=== PATIENT | female | born 1970 | race Caucasian/White ===

== ENCOUNTER 2017-03-09 05:54 | Emergency (ER) | payer OTHER ==
--- NOTE | 2017-03-09 05:57 | ED.REPORT ---
HPI-General Illness Date of Service Mar 09, 2017 ED Provider: Dr. Sinclair A 46 year old female with a history of SVT presents to the ED complaining of SVT onset 0530 while patient was bending over to put her socks on. Patient arrived at ED at 0615. Associated symptoms include nausea and mild dyspnea, which the patient has not experienced with previous SVT. Usually, episodes of SVT can be relieved with ice water, but this did not work today. She reports prior episode of SVT more than a year ago. Has tried metoprolol but found regular use caused undue side effects. Removing caffeine from her diet and stress reduction has helped with reducing recurrences of SVT Nursing Notes Stated Complaint: RAPID HEART BEAT Nursing Notes Reviewed: Yes Allergies: Coded Allergies: No Known Allergies (Unverified , 03/09/17) General Time Seen by MD: 05:57 Chief Complaint Other (SVT) tachycardia Hx Obtained From: Patient, EMS Arrived By: Walk-in Sudden in Onset?: Yes Onset Occurred: 31 - 45 minutes ago (half hour ago) Symptom Duration: Since onset Severity: Current: No pain currently Severity: Maximum: No pain Recent Healthcare: No recent doctor visit Similar Sx Previous: Yes Past Medical History Past Medical History SVT Denies: Hypertension Past Surgical History Reports: Hysterectomy Social History suddenly 01/2017 Patient is under a lot of stress right now. 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 Ambulatory Status Independent Review of Systems SVT Full Review of Systems Constitutional: Denies: Chills, Fever Cardiovascular: Denies: Chest pain Complete sys rev & neg: except as marked. Physical Exam Vital Signs Vital Signs Date Time Temp Pulse Resp B/P Pulse Ox O2 Delivery O2 Flow Rate FiO2 03/09/17 06:50 93 16 98/68 98 03/09/17 06:26 96 14 129/90 98 Room Air 03/09/17 06:00 36.5 173 15 139/104 98 Initial VS: Reviewed General/Constitutional: Well-developed, Well-nourished (no acute distress, speaking full sentences and not having pain) ENT: Mucous membranes moist Neck: Supple Respiratory: Breath sounds normal, Clear to auscultation Cardiovascular: Intact distal pulses (inital rate was fast and regular. After cardioversion, slower without murmurs, gallops, rubs or clicks) Abdomen / GI: Soft, Non-tender Back: No CVA tenderness Lymphatic: No lymphadenopathy Extremities: Vascular intact, Neuro intact, No swelling, No tenderness Skin: Warm, Dry Neurologic: Alert, Oriented, Nonfocal Psychiatric: Mood/affect normal, Behavior normal, Normal thought content General/Constitutional: Awake, Alert Appropriate. Is not in pain. Head / Eyes: Atraumatic, Normocephalic, PERRL, EOMI Abdomen: No guarding, No rebound Skin: Atraumatic, Color NL, Warm, Dry Not diaphoretic. Neurologic: Oriented X3, Speech NL Interpretation & Diagnostics Lab Results Interpretation Result Diagram: 03/09/17 0601 03/09/17 0601 Test 03/09/17 06:01 White Blood Count 11.9th/mm3 (3.8-10.1) Red Blood Count 5.11mil/mm3 (3.90-5.20) Hemoglobin 14.7g/dL (12.0-15.6) Hematocrit 43.7% (35.0-46.0) Mean Corpuscular Volume 85.5fL (81-100) Mean Corpuscular Hemoglobin 28.8pg (27.0-35.0) Mean Corpuscular Hemoglobin Concent 33.6% (32.0-37.0) Red Cell Distribution Width 12.9% (12.3-15.4) Platelet Count 379bil/L (150-400) Neutrophils (%) (Auto) 48.1% (40-74) Lymphocytes (%) (Auto) 40.1% (14-46) Monocytes (%) (Auto) 7.8% (4-12) Eosinophils (%) (Auto) 3.2% (0-5) Basophils (%) (Auto) 0.5% (0-3) Sodium Level 139mEq/L (134-144) Potassium Level 3.3mEq/L (3.5-5.2) Chloride Level 98mEq/L (97-108) Carbon Dioxide Level 21mmol/L (18-29) Blood Urea Nitrogen 23mg/dL (6-24) Creatinine 0.76mg/dL (0.57-1.00) Estimat Glomerular Filtration Rate 116mL/min (>59) Glucose Level 188mg/dL (60-99) Calcium Level 10.1mg/dL (8.5-10.1) Magnesium Level 2.0mg/dL (1.6-2.6) Total Bilirubin 0.6mg/dL (0.0-1.2) Aspartate Amino Transf (AST/SGOT) 29U/L (0-50) Alanine Aminotransferase (ALT/SGPT) 20U/L (0-32) Alkaline Phosphatase 63U/L (25-150) Troponin T 0.010ug/L (0.0-0.011) Total Protein 8.1g/dL (6.4-8.4) Albumin 5.0g/dL (3.4-5.0) Hold [place] Top Tube Received (Received) ECG Interpretation ECG Interpretation: SVT at 150. ST depression, diffuse leads. Time: 06:03 Interpreted by: ED physician ECG Interpretation: Rate is 97. Sinus rhythm. No ischemia. Time: 07:11 Interpreted by: ED physician X-Ray Interpretation Study Performed: portable chest Interpretation / Wet Read by: Interpret - ED physician Interpretation: Normal exam (no cardiomegaly, inflitrates, interstial findings or pneumothorax) Re-Eval/Medical Decision Med Decision/Clinical Course 46-year-old woman presents with 45 minutes of SVT beginning to become symptomatic. I started labs are drawn she is given 6 mg of adenosine and converted spontaneously. We will send her home with when necessary 25 mg metoprolol. An additional dose of metoprolol tartrate was given in the emergency room today. Follow up with PCP Source of Hx: Old records Time of Eval: 05:57 Re-Evaluation/Progress Note: Patient has been in SVT a half hour with Vagal Maneuvers. Time of Eval: 06:26 Re-Evaluation/Progress Note: Rechecked patient and evaluated EKG. Time of Eval: 07:12 Re-Evaluation/Progress Note: Rchecked patient and explained EKG results Patient is now accompanied by her mother. 129/94 blood pressure. Explained plan for discharge pending blood work results. Patien understands and agrees with the plan. All questions addressed. Counseled Regarding: Diagnosis, Lab results, Need for follow-up, When/why to return to ED Discharge & Departure Primary Impression: SVT (supraventricular tachycardia) Disposition: Home Referrals: OTHER,PHYSICIAN (PCP) Scribe Attestation Portions of this note were transcribed by Theodore Parker. I, Dr. Sinclair personally performed the history, physical exam and medical decision-making; I reviewed and confirmed the accuracy of the information in the transcribed note. Signed by: Latisha Higgins, 03/09/2017, 0629. copies to: OTHER,PHYSICIAN Katy Sinclair MD Mar 09, 2017 05:57 Theodore Parker Mar 09, 2017 06:20
[2017-03-09 06:00] VITALS: BP 139/104; PULSE 173; RESP 15; O2SAT 98
[2017-03-09] MEDS ORDERED: Adenosine 3 mg/mL 2 mL Inj IVPUSH ONE ×2 (06:05)
[2017-03-09 06:15] LABS: BASOPHILS % (AUTO) 0.5 % (0-3); EOSINOPHILS % (AUTO) 3.2 % (0-5); MONOCYTES % (AUTO) 7.8 % (4-12); Mean Corpuscular Hemoglobin 28.8 pg (27.0-35.0); Mean Corpuscular Volume 85.5 fL (81-100); NEUTROPHILS % (AUTO) 48.1 % (40-74); Platelet Count 379 bil/L (150-400)
[2017-03-09 06:26] VITALS: BP 129/90; PULSE 96; RESP 14; O2SAT 98
[2017-03-09 06:39] LABS: TROPONIN T 0.01 ug/L (0.0-0.011)
[2017-03-09 06:50] VITALS: BP 98/68; PULSE 93; RESP 16; O2SAT 98
[2017-03-09 07:34] VITALS: BP 134/101; PULSE 91; RESP 16; O2SAT 100
[2017-03-09] MEDS ORDERED: METO25TA6 PO (08:02)
[2017-03-09 08:09] VITALS: BP 127/91; PULSE 102; RESP 16; O2SAT 100
--- NOTE | 2017-03-09 08:54 | DRSVH ---
PROCEDURE: X-RAY CHEST ONE VIEW, PORTABLE ([id number]) INDICATIONS: tachycardia TECHNIQUE: One view of the chest was acquired. COMPARISON: [facility], , CHEST 1VW (PORTABLE), 09/23/2007, 21:26. FINDINGS: Surgical changes and devices: None. Lungs and pleura: No pleural effusions or pneumothorax. Lungs are clear. Mediastinum: Mediastinal contours appear normal. Heart size is normal. Bones and chest wall: No suspicious bony lesions. Overlying soft tissues appear unremarkable. IMPRESSION: No acute cardiopulmonary disease. Dictated by: Eamon RAWLS Interpreted: Bia Mar MD on 03/09/2017 at 8:54 Transcribed by: ALBIN on 03/09/2017 at 8:54 Approved by: Bia Mar MD, PhD on 03/09/2017 at 16:43
== END 2017-03-09 08:10 | disposition home or self-care (01) ==
LOC: SED 05:54
DX: I47.1 Supraventricular tachycardia (principal)
CPT/HCPCS: 36415; 71010; 80053; 83735; 84484; 85025; 93005; 96374; 99285; J0153